=== PATIENT | female | born 1975 | race Caucasian/White ===

== ENCOUNTER → 2020-10-18 | Outpatient (CLI) | payer BC, OTHER ==
[~2020-10-18] MED LIST: ASPIRIN CHEWABL81 MG PO; DULOXETINE HCL60 MG PO; ELAVIL 10 MG TA10 MG PO; LINZESS290 MCG PO; MONTELUKAST SOD10 MG PO; MULTIVITAMINS1 EAC1 PO; PROTONIX 40 MG40 M1 PO
== END ==
LOC: HEART 5 09:25
DX: R06.02 Shortness of breath (principal)
CPT/HCPCS: 94010

== ENCOUNTER → 2020-11-02 | Outpatient (CLI) | payer BC, OTHER | LOC: EXRD 08:10 | DX: R91.8 Other nonspecific abnormal finding of lung field (principal) | CPT/HCPCS: 71046 ==

== ENCOUNTER → 2020-11-05 | Outpatient (CLI) | payer BC, OTHER | LOC: KOH-I 09:15 | DX: J01.81 Other acute recurrent sinusitis (principal) | CPT/HCPCS: 70486 ==

== ENCOUNTER → 2022-04-22 | Outpatient (CLI) | payer BC | LOC: EMI 08:26 | DX: M25.512 Pain in left shoulder (principal); M75.112 Incomplete rotator cuff tear or rupture of left shoulder, not specified as traumatic; M67.912 Unspecified disorder of synovium and tendon, left shoulder | CPT/HCPCS: 73221 ==